=== PATIENT | female | born 1985 | race Caucasian/White ===

== ENCOUNTER 2018-03-12 13:00 | Emergency (ER) | payer BC ==
[~2018-03-12] VITALS: Ht 165.1 cm; Wt 73.9 kg
[2018-03-12 13:02] VITALS: TEMP 98.1
[2018-03-12] MEDS ORDERED: BENADRYL25 M2 PO (13:07)
[2018-03-12] MEDS ORDERED: PRENATAL 191 TAB PO (13:07)
[2018-03-12] MEDS ORDERED: UNISOM25 MG PO (13:07)
[2018-03-12] MEDS ORDERED: PROBIOTIC-SUNMARK (13:08)
[2018-03-12 13:35] LABS: BASO % 0.1 % (0.0-2.0); EOS # 0.1 (0.0-0.7); EOS % 0.9 % (0-4.0); GRAN # 10.6 (1.4-6.5); GRAN % 83.4 % (42.2-75.2); HEMOGLOBIN 10.8 g/dl (12.5-16.0); LYMPH # 1.2 (1.2-3.4); LYMPH % 9.2 % (20.0-51.0); MEAN CELL VOLUME 81 fl (80.0-100.0); MEAN CORPUSCULAR HEMOGLOBIN 27 pg (27.0-31.0); MEAN CORPUSCULAR HGB CONC 34 g/dl (33.0-37.0); MEAN PLATELET VOLUME 9.2 fl (7.4-10.4); MONO # 0.7 (0.1-0.6); MONO % 5.8 % (1.7-9.3); PLATELET COUNT 347 K/mm3 (130-400); RED BLOOD COUNT 3.97 M/mm3 (4.10-5.30); REDCELL DISTRIBUTION WIDTH-CV 13.1 % (11.5-14.5)
[2018-03-12 13:43] LABS: ALBUMIN 3.6 gm/dL (3.5-5.0); BILIRUBIN,TOTAL 0.5 mg/dL (0.0-1.0); CALCIUM 8.7 mg/dL (8.4-10.2); CREATININE, serum 0.58 mg/dL (0.52-1.25); POTASSIUM 3.9 mmol/L (3.4-5.0); TOTAL PROTEIN 6.8 gm/dL (6.4-8.2)
[2018-03-12 14:30] LABS: COLLECTION METHOD CLEAN CATCH
[2018-03-12 14:50] LABS: MUCOUS Present /lpf; PH 7 (5-8); SQUAMOUS EPITHELIAL 0-2 /hpf; URINE APPEARANCE Clear; URINE BACTERIA Rare /hpf; URINE BILIRUBIN Negative (NEGATIVE); URINE BLOOD Negative (NEGATIVE); URINE COLOR Straw; URINE GLUCOSE Negative (NEGATIVE); URINE KETONE Negative (NEGATIVE); URINE LEUKOCYTE ESTERASE Negative (NEGATIVE); URINE NITRATE Negative (NEGATIVE); URINE PROTEIN(semi-quant) Negative (NEGATIVE); URINE RBC 0-2 /hpf; URINE UROBILINOGEN Negative (NEGATIVE)
[2018-03-12 16:04] VITALS: BP 122/70; PULSE 81
== END 2018-03-12 16:08 | disposition home or self-care (01) ==
LOC: COL.ER 13:00
PROVIDERS: Emergency Medicine
DX: O26.893 Other specified pregnancy related conditions, third trimester (principal); R55 Syncope and collapse; Z3A.31 31 weeks gestation of pregnancy
CPT/HCPCS: J7030

== ENCOUNTER 2018-04-26 07:50 | Outpatient (CLI) | payer BC, MEDICAID ==
[~2018-04-26] VITALS: Ht 162.6 cm; Wt 75.5 kg
[2018-04-26 06:54] VITALS: BP 113/67; PULSE 73; TEMP 98.6
[~2018-04-26 07:50] MED LIST: BENADRYL25 M2 PO; PRENATAL 191 TAB PO; PROBIOTIC-SUNMARK; UNISOM25 MG PO
--- NOTE | 2018-04-26 08:19 | NUR ---
0800 PT ARRIVES AMB FOR SCHEDULED VERSION ATTEMPT BY DR BOLTON. GOWAnastacio ON AND TO BED. PLAN OF CARE DISCUSSED AND ASSESSMETN STARTED. 0820 ASSESSMENT COMPLETED AND CONSENT SIGNED.
[2018-04-26 08:30] VITALS: BP 113/67; PULSE 73; TEMP 98.6
[2018-04-26 09:15] VITALS: BP 134/71; PULSE 76
[2018-04-26 10:15] VITALS: BP 124/88; PULSE 78
--- NOTE | 2018-04-26 10:27 | NUR ---
0845 INT PLACED AND LABS DRAWN. PT TOLERATED WELL
--- NOTE | 2018-04-26 10:29 | NUR ---
09 DR BOLTON IN ROOM AND ULTRASOUND PERFORMED. 909 DR GRIGSBY IN ROOM. 09 TERBUTALINE 0.125MG IV PUSH GIVEN. 12 VERSION ATTEMPTED STARTED. 14 VERSION ATTEMPT SUCCESSFUL AND CONFIRMED BY ULTRASOUND. PT TOLERATED WELL. 15 FM BELT REAPPLIED AND GOOD TRACING OBTAINED. RECOVERY PLAN OUTLINED WITH PT AND BOTH VERY PLEASED WITH SUCCESSFUL VERSION. WARM BLANKET PROVIDED.
--- NOTE | 2018-04-26 10:36 | NUR ---
1015 PT NOT FEELING CONTRACTIONS THAT SHOW ON MONITOR. MONITORS OFF, HOME CARE INSTRUCTIONS REVIEWED WITH PT. UP TO VOID AND CHANGE CLOTHES. 1025 DISMISSED AMB TO SELF CARE WITH INSTRUCTIONS FOR FOLLOW UP AND TO KEEP SCHEDULED APPOINTMENT THIS WEEK. ALSO KNOW SCHEDULED FOR INDUCTION ON 05/05/18.
== END 2018-04-26 10:24 | disposition home or self-care (01) ==
LOC: LDRO 07:50
DX: O32.1XX1 Maternal care for breech presentation, fetus 1 (principal); Z3A.37 37 weeks gestation of pregnancy
CPT/HCPCS: J3105

== ENCOUNTER 2018-05-03 20:30 | Inpatient (IN) | payer BC, MEDICAID ==
[~2018-05-03] VITALS: Ht 162.6 cm; Wt 76.4 kg
[2018-05-03 20:45] VITALS: BP 124/81; PULSE 103; TEMP 98.5
--- NOTE | 2018-05-03 20:45 | NUR ---
PT ARRIVES TO UNIT WITH C/O LEAKING FLUID. TAKEN TO LR 4 ACCOMPAINED BY SPOUSE. PT CHANGES TO GOWN. EFM'S APPLIED AND VS OBTAINED. POSITIVE NITRAZENE SWAP OF FLUID. UNABLE TO EXAMINE PT CERVIX DUE TO PT DISCOMFORT WITH EXAM.
[2018-05-03 21:15] VITALS: BP 116/78; PULSE 75
--- NOTE | 2018-05-03 21:15 | NUR ---
DR PANDA NOTIFIED OF PATIENT. PT STATES SHE HAD A VERSION LAST WEEK AND SHE THINKS THE BABY TURNED AGAIN. BEDSIDE SONO TO VERIFY VERTEX PRESENTATION COMPLETED BY DR. PANDA. PLAN OF CARE REVIEWED.
[2018-05-03 21:45] VITALS: BP 119/74; PULSE 88
[2018-05-03 21:51] LABS: BASO % 0.2 % (0.0-2.0); EOS # 0.1 (0.0-0.7); EOS % 0.7 % (0-4.0); GRAN # 10.8 (1.4-6.5); GRAN % 82.5 % (42.2-75.2); HEMATOCRIT 36.8 % (37.0-47.0); HEMOGLOBIN 12.4 g/dl (12.5-16.0); LYMPH # 1.3 (1.2-3.4); LYMPH % 9.9 % (20.0-51.0); MEAN CELL VOLUME 80 fl (80.0-100.0); MEAN CORPUSCULAR HEMOGLOBIN 27 pg (27.0-31.0); MEAN CORPUSCULAR HGB CONC 34 g/dl (33.0-37.0); MEAN PLATELET VOLUME 9.8 fl (7.4-10.4); MONO # 0.8 (0.1-0.6); MONO % 6.1 % (1.7-9.3); PLATELET COUNT 400 K/mm3 (130-400); REDCELL DISTRIBUTION WIDTH-CV 13.3 % (11.5-14.5)
[2018-05-03 22:15] VITALS: BP 119/71; PULSE 86
--- NOTE | 2018-05-03 22:15 | NUR ---
2149 CONSENTS FOR BABY AND PATIENT EXPLAINED AND SIGNED. 2200 PT SITS UPRIGHT. TAKING APPLE JUICE AND ICE CREAMS. STATES THE DRAnay TOLD HER SHE COULD EAT A LIGHT MEAL. FHTS WITH LATE DECEL. LR IVFS INITIATED. PT EDUCATED AND QUESTIONS ANSWERED.
--- NOTE | 2018-05-03 22:35 | NUR ---
PT UP TO USE BR AND WALK IN HALLS. IV TO INT.
--- NOTE | 2018-05-03 23:15 | NUR ---
pt wishes to use hot tub. automobile upholsterer apprentice asked to prepare tub for use
[2018-05-04] VITALS (30 sets, daily range): BP systolic 93–164; BP diastolic 51–95; PULSE 72–112; TEMP 97.3–98.7
--- NOTE | 2018-05-04 | NUR ---
Pt sitting on birthing ball with at her side for support. Call light within reach.
--- NOTE | 2018-05-04 00:45 | NUR ---
Pt ambulating in the hallway with at her side.
--- NOTE | 2018-05-04 01:45 | NUR ---
Pt to use the hot tub. Plan of care with water temp and doppler of FHT reviewed with pt. Pt verbalized an understanding and agrees with the plan.
--- NOTE | 2018-05-04 03:00 | NUR ---
Pitocin started per Dr. Wright's order.
--- NOTE | 2018-05-04 03:35 | NUR ---
0335- Pt requesting an epidural. Chandrakant Chin CRNA notified. 0345- Chandrakant Chin CRNA at the bedside. Pt sitting up on the edge of the bed. SPO2 monitor started. Maternal HR intermittently tracing as coorelates with SPO2 monitor. 0402- Single shot given per GILBERTO. See anesthesia record for details. 0406- Pt positioned back in bed with left wedge. EFM and toco monitors adjusted. Plan of care reviewed. 0421- FHR decel to 90's for 2 minutes. Repositioned to right lateral. FHR back to baseline 140's.
--- NOTE | 2018-05-04 05:45 | NUR ---
0545- SVE by this RN /-2. Update given to Dr. Wright. Repositioned pt to left lateral. 0552- FHR decel down to 90's for 5 minutes. Frequent position changes between right and left lateral. Pitocin turned off. O2 at 10L via face mask started. FHR with gradual return to baseline 145. 0610- Spoke with Dr. Wright for an update on FHR decels and current FHR tracing. No new orders at this time. Will continue to monitor.
--- NOTE | 2018-05-04 07:10 | NUR ---
Patient reports increased pressure. SVE AL/+2. Dr. Bush notified, in transit to hospital. RN remains at bedside for impending delivery. Enrique catheter removed prior to pushing. Pericare given.
--- NOTE | 2018-05-04 07:25 | NUR ---
SVE by this RN . Dr. Bush at bedside. Patient assisted to footplates and prepped for delivery. Periprep completed. 0733- Patient begins pushing with contractions with physician at bedside. Nursery RN to bedside. 0746- SVE of viable female infant attended by Dr. Bush. Infant to mother's abdomen and care of to Anastacia Aleman RN. Apgars 8/9/9. 0748- Spont. delivery of placenta. Pitocin bolus started at 333 ml/hr/protocol. Fundal massage by RN, vaginal bleeding WNL. First degree perinal skidmark noted, no suture needed. Pericare given, underpads changed and ice pack to perineum. Post delivery vaginal count correct. Patient udpated on plan of care.
[2018-05-05] MEDS ORDERED: MOTRIN 800800 MG/TAB PO (07:24)
[2018-05-05] MEDS ORDERED: PERCOCET 325 MG1 TA2 PO (07:24)
[2018-05-05 09:10] VITALS: BP 120/82; PULSE 62; TEMP 98
--- NOTE | 2018-05-05 11:02 | NUR ---
Initial visit; Parents thanked Station Master for offering congratulations and prayer for the of their daughter.
[2018-05-05 20:00] VITALS: BP 109/64; PULSE 67; TEMP 98
--- NOTE | 2018-05-06 02:30 | NUR ---
0230 PT REQUEST 2ND AMBIEN FOR SLEEP. BABY TO [facility] PER REQUEST.
[2018-05-06 08:45] VITALS: BP 105/71; PULSE 84; TEMP 98.9
--- NOTE | 2018-05-06 10:18 | NUR ---
Follow-up visit; Patient thanked Charge Nurse for looking in on her again this morning and offering God's blessings.
--- NOTE | 2018-05-06 14:30 | NUR ---
Discharge instructions gone over, patient agrees/understands, and signs papers. 1445: Baby bands off and car seat checked, 1450: Patients ambulatory off unit with spouse with PCR.[email or web address]
== END 2018-05-06 14:50 | disposition home or self-care (01) | DRG 807 ==
LOC: LDRO 20:30 → LDR 21:15 → OB 21:15
PROVIDERS: ADMIT Student in an Organized Health Care Education/Training Program
PROC: 10E0XZZ Delivery of Products of Conception, External Approach (ICD-10-PCS; principal; 2018-05-04)
PROC: 0HQ9XZZ Repair Perineum Skin, External Approach (ICD-10-PCS; 2018-05-04)
DX: O70.0 First degree perineal laceration during delivery (principal); Z37.0 Single live birth; Z3A.39 39 weeks gestation of pregnancy; O76 Abnormality in fetal heart rate and rhythm complicating labor and delivery; O99.344 Other mental disorders complicating childbirth; F41.8 Other specified anxiety disorders
CPT/HCPCS: J2590; J7120

== ENCOUNTER 2018-09-06 11:58 | Emergency (ER) | payer BC ==
[~2018-09-06] VITALS: Ht 165.1 cm; Wt 70.5 kg
[~2018-09-06 11:58] MED LIST changes: +MOTRIN 800800 MG/TAB PO; +PERCOCET 325 MG1 TA2 PO
[2018-09-06 12:06] VITALS: TEMP 97.7
[2018-09-06] MEDS ORDERED: LEXAPRO 10MG10 MG PO (12:22)
[2018-09-06] MEDS ORDERED: ALDACTONE50 MG PO (12:22)
[2018-09-06] MEDS ORDERED: VALIUM 5MG T5 MG/TAB PO (13:22)
[2018-09-06 15:14] VITALS: BP 119/76; PULSE 67
== END 2018-09-06 15:14 | disposition home or self-care (01) ==
LOC: COL.ER 11:58
DX: G58.8 Other specified mononeuropathies (principal)
CPT/HCPCS: J1885; J7030

== ENCOUNTER → 2020-04-06 | Outpatient (CLI) | payer BC ==
[~2020-04-06] MED LIST changes: +ALDACTONE50 MG PO; +LEXAPRO 10MG10 MG PO; +VALIUM 5MG T5 MG/TAB PO
== END ==
LOC: COL.RAD 07:06
DX: R10.2 Pelvic and perineal pain (principal)

== ENCOUNTER 2020-09-05 17:21 | Emergency (ER) | payer BC ==
[~2020-09-05] VITALS: Ht 165.1 cm; Wt 68.2 kg
[2020-09-05 17:56] VITALS: TEMP 98
[2020-09-05 19:21] LABS: COLLECTION METHOD CLEAN CATCH
[2020-09-05 19:26] LABS: BASO % 0.2 % (0.0-2.0); EOS # 0.2 (0.0-0.7); EOS % 2.1 % (0-4.0); GRAN # 7.6 (1.4-6.5); GRAN % 76.6 % (42.2-75.2); HEMATOCRIT 40.2 % (37.0-47.0); HEMOGLOBIN 12.8 g/dl (12.5-16.0); LYMPH # 1.3 (1.2-3.4); LYMPH % 13.2 % (20.0-51.0); MEAN CELL VOLUME 83 fl (80.0-100.0); MEAN CORPUSCULAR HEMOGLOBIN 26 pg (27.0-31.0); MEAN CORPUSCULAR HGB CONC 32 g/dl (33.0-37.0); MEAN PLATELET VOLUME 8.9 fl (7.4-10.4); MONO # 0.8 (0.1-0.6); MONO % 7.5 % (1.7-9.3); PLATELET COUNT 378 K/mm3 (130-400); RED BLOOD COUNT 4.85 M/mm3 (4.10-5.30); REDCELL DISTRIBUTION WIDTH-CV 13.4 % (11.5-14.5)
[2020-09-05 19:30] LABS: MUCOUS Present /lpf; PH 7 (5-8); SQUAMOUS EPITHELIAL 0-2 /hpf; URINE APPEARANCE Clear; URINE BACTERIA None Seen /hpf; URINE BILIRUBIN Negative (NEGATIVE); URINE BLOOD Negative (NEGATIVE); URINE COLOR Yellow; URINE GLUCOSE Negative (NEGATIVE); URINE KETONE Negative (NEGATIVE); URINE LEUKOCYTE ESTERASE Negative (NEGATIVE); URINE NITRATE Negative (NEGATIVE); URINE PROTEIN(semi-quant) Negative (NEGATIVE); URINE RBC 0-2 /hpf; URINE UROBILINOGEN Negative (NEGATIVE)
[2020-09-05 19:40] LABS: ALBUMIN 4.6 gm/dL (3.5-5.0); BILIRUBIN,TOTAL 0.4 mg/dL (0.0-1.0); CREATININE, serum 0.56 (0.52-1.25); POTASSIUM 3.8 mmol/L (3.4-5.0)
[2020-09-05] MEDS ORDERED: MEDROL 4MG DOSPA4 MG PO (21:01)
[2020-09-05] MEDS ORDERED: NORFLEX 10100 MG/TAB PO (21:01)
[2020-09-05] MEDS ORDERED: NORCO 325 MG-51 TAB PO (21:10)
[2020-09-05 22:12] VITALS: BP 125/78; PULSE 78
== END 2020-09-05 22:12 | disposition home or self-care (01) ==
LOC: COL.ER 17:21
PROVIDERS: Physician Assistant
DX: S39.012A Strain of muscle, fascia and tendon of lower back, initial encounter (principal); R10.9 Unspecified abdominal pain; F31.9 Bipolar disorder, unspecified; Z32.02 Encounter for pregnancy test, result negative; X58.XXXA Exposure to other specified factors, initial encounter
CPT/HCPCS: J1170; J1885; J2405; J7030; Q9967